=== PATIENT | female | born 1960 | race Caucasian/White ===

== ENCOUNTER 2021-12-06 21:29 | Emergency (ER) | payer MEDICARE, SELFPAY ==
[2021-12-06 21:30] VITALS: BP 139/97; PULSE 83; RESP 18; O2SAT 96; BMI 40.1
--- NOTE | 2021-12-06 21:37 | ED_ITS ---
HPI - Headache General: Chief Complaint: Headache Stated Complaint: SWELLING TO FOREHEAD/ HEADACHE Time Seen by Provider: 12/06/21 21:31 Source: patient Mode of arrival: EMS Limitations: no limitations History of Present Illness: HPI Narrative: Painful rash to upper forehead that started yesterday. The rash is gradually worsened and is very painful to touch. No injury. Pain is only to the skin and not deep in her head. Patient states she is a well-controlled type II diabetic MD elicited complaint: other (Forehead pain) Onset (ago): day(s) (2) Onset description: gradually Severity: moderate Quality & Timing: aching Exacerbating factors: other (Palpation) Relieving factors: nothing Associated symptoms: Reports rash; Deny chest pain, confusion, cough, diaphoresis, eye pain, eye redness, fever(s), lightheadedness, loss of vision, malaise, nausea, neck stiffness, numbness, paresthesias, photophobia, pre-syncope, short of breath, sound sensitivity, syncope, vomiting or weakness Review of Systems Const: Denies: fever(s), malaise or diaphoresis Eyes: Denies: change in vision ENMT: Denies: throat pain Card: Denies: chest pain, lightheadedness, syncope or pre-syncope Resp: Denies: dyspnea or wheezing GI: Denies: nausea or vomiting : Denies: flank pain Musc: Denies: neck pain or back pain Skin/Breast: Reports: rash Neuro: Denies: confusion Psych: Denies: anxiety Gianfranco/Lymph: Denies: enlarged lymph nodes Physical Exam Const: COMMON NORMALS: no acute distress, patient oriented x3, no limitations and well nourished EXAM LIMITATIONS: no altered mental status GENERAL APPEARANCE: cooperative HENMT: COMMON NORMALS: normocephalic and atraumatic HEAD & SCALP: normocephalic and atraumatic FACE & SINUS: other (Erythematous slightly raised rash to mid forehead consistent with zoster) THROAT: posterior oropharynx normal OTHER: Erythematous rash to mid forehead appears to be migrating down to the right orthodox. This is consistent with zoster. Rash is tender to touch. No abscess. No fluctuance. Eye: COMMON NORMALS: EOMs intact bilaterally and conjunctivae normal CONJUNCTIVA: Yes conjunctivae normal DIRECT OPHTHALMOSCOPY: No photophobia Neck/C-Spine: COMMON NORMALS: full ROM, no lymphadenopathy, supple and no m eningeal signs GENERAL: Yes normal visual inspection Lymph: LYMPHATIC: no lymphadenopathy noted Chest: COMMONS NORMALS: normal inspection of the chest and normal palpation of entire chest wall CHEST: No Ecchymosis present and No rash Resp: COMMON NORMALS: normal respiratory effort, No retractions and clear to a uscultation bilaterally EFFORT & INSPECTION: No respiratory distress AUSCULTATION: clear to auscultation bilaterally Cardio: COMMON NORMALS: regular rate, regular rhythm and Peripheral pulses 2+ throughout JUGULAR VENOUS DISTENTION: no JVD RATE: regular rate RHYTHM: regular rhythm PERIPHERAL PULSES: Peripheral pulses 2+ throughout GI: COMMON NORMALS: Normal to inspection, nondistended, normoactive bowel sounds present and non-tender : COMMON NORMALS: Yes no CVA tenderness BLADDER/KIDNEY EXAM: Yes no CVA tenderness Back/Pelvis: COMMON NORMALS: no CVA tenderness Extremity: COMMON NORMALS: normal to inspection, full ROM and capillary refill normal Neuro: COMMON NORMALS: patient oriented x3, CN's II-XII intact bilaterally, no focal motor deficits and no sensory deficits noted MENINGEAL SIGNS: Yes no meningeal signs Psych: COMMON NORMALS: mental status grossly normal and Normal thought process present THOUGHT PROCESS: Normal thought process present Skin: COMMON NORMALS: no wounds GENERAL SKIN EXAM: other (Early zoster to forehead.) Course Vital Signs: Vital signs: Vital Signs Pulse Rate 83 12/06/21 21:30 Respiratory Rate 18 12/06/21 21:30 Blood Pressure 139/97 12/06/21 21:30 Pulse Oximetry 96 12/06/21 21:30 MDM - Headache 2 MDM Narrative: Medical decision making narrative: I discussed with the patient that we will give low-dose steroid for a few days. Would give longer regimen, but patient is diabetic. Discharge Plan Discharge Patient Disposition: Home Clinical Impression: Herpes zoster Qualifiers: Herpes zoster complications: without complications Qualified Code(s): B02.9 - Zoster without complications Condition: Stable Prescriptions: New acyclovir 800 mg tablet 800 mg PO QID Qty: 28 RF: 0 prednisone 20 mg tablet 20 mg PO DAILY 5 Days RF: 1 hydrocodone-acetaminophen 5-325 mg tablet 1 tab PO Q6H PRN (Reason: pain) Qty: 12 RF: 0 Discharge Orders: Discharge ED (Routine); Ordered 12/06/21 Ordered By: Edwardo Pratt Discharge Diet: Usual diet Patient Instructions: Shingles (ED), Opioid Safety Activity Restrictions/Additional Instructions: Start acyclovir antiviral medication in the morning. Take prednisone with food each day for the next 5 days. Take hydrocodone only as directed. Coding Level of Care Code ED Timber Poisoner for Justino Fwd Exam Comprehensive
[2021-12-06] MEDS: acetaminophen 500 mg Tablet 1000 MG PO (22:16)
[2021-12-06] MEDS: predniSONE 20 mg Tablet 40 MG PO (22:16)
[2021-12-06] MEDS: acyclovir 800 mg Tablet PO (22:16)
== END 2021-12-06 22:17 | disposition home or self-care (01) ==
LOC: ER 22:01
PROVIDERS: Emergency Provider Family Medicine
DX: B02.9 Zoster without complications (principal)
CPT/HCPCS: 99283; J7512; J8499

== ENCOUNTER 2021-12-07 14:48 | Emergency (ER) | payer MEDICARE, SELFPAY ==
[2021-12-07 15:06] VITALS: BP 134/91; PULSE 90; RESP 20; TEMP 36.9; O2SAT 97; BMI 39.4
--- NOTE | 2021-12-07 15:19 | W.ED.GENADLT ---
Documented by User: Samnatha Ji PA-C 12/07/21 16:47 HPI - General Adult General: Chief complaint: General Medical Stated complaint: ANXIETY Time Seen by Provider: 12/07/21 15:14 Source: patient Mode of arrival: ambulatory Limitations: no limitations History of Present Illness: HPI narrative: 61-year-old female presents the ER today for anxiety and pain associated with shingles. Patient was seen here last night and diagnosed with shingles. Patient was given hydrocodone, acyclovir, and prednisone. Patient reports she had to then be outside for 3 hours because who she was staying with would not let her in. Patient was able to get in but then was kicked out this morning. Patient reports she has nowhere to go but needs to get back to [place]. Patient has not filled her medications she was given last night. Patient reports her anxiety is severe at this time. She has a history of anxiety but does not take anything for it. Patient denies any SI\HI. Patient reports chest pain in the left side. She reports she had a history of an AZ. She feels like this is probably anxiety however does radiate down the left arm. Patient denies any radiation into the jaw. Patient reports this has been constant since last night since her pain started getting worse. Patient denies dizziness, headache, fever, chills, shortness of breath, nausea, vomiting, diarrhea, constipation. Onset (ago): day(s) Location: head and chest Severity: severe Severity scale (1-10): 6 Associated symptoms: Reports chest pain and rash; Deny dyspnea Review of Systems General: Reports: 10 or more systems reviewed and unremarkable except in HPI and below Card: Reports: chest pain; Denies: edema Resp: Denies: dyspnea Skin/Breast: Reports: rash Psych: Reports: anxiety, depression and panic attacks; Denies: suicidal ideation or homicidal ideation Physical Exam Const: COMMON NORMALS: average body habitus and patient oriented x3 GENERAL APPEARANCE: cooperative and anxious HENMT: COMMON NORMALS: normocephalic, external ears normal and Normal external nose present HEAD & SCALP: normocephalic NOSE: Normal external nose present EXTERNAL EAR: Yes external ears normal OTHER: Erythema is noted to the forehead. There are no obvious shingles like lesions. Eye: COMMON NORMALS: conjunctivae normal CONJUNCTIVA: Yes conjunctivae normal Neck/C-Spine: COMMON NORMALS: no lymphadenopathy Resp: COMMON NORMALS: normal respiratory effort, No retractions and clear to auscultation bilaterally AUSCULTATION: clear to auscultation bilaterally, no rales, no rhonchi and no wheezes Cardio: COMMON NORMALS: regular rate, regular rhythm and No murmurs present (Cardio) RATE: regular rate RHYTHM: regular rhythm Extremity: COMMON NORMALS: normal to inspection and full ROM Neuro: COMMON NORMALS: patient oriented x3, moves all extremities, no sensory deficits noted and gait normal Psych: MOOD & AFFECT: Yes depressed mood, Yes anxious and Yes tearful Skin: NARRATIVE SKIN EXAM: Patient has erythema noted to the forehead but no obvious shingles lesions. Course ED course: Patient presents to the ER today for anxiety and pain associated with shingles. Patient was seen last night given appropriate medication for the shingles however she is homeless and went back to stay with someone. Patient reports she was kicked out this morning and has nowhere to go. Patient reports severe anxiety causing chest pain. Patient does have a history of an AZ however. On exam patient is noted to have erythema of the forehead. Patient has not filled her medications for the shingles. We will get an EKG given the chest pain however this is likely associated with anxiety as it started after all of the complications she has had in the last 2 days of finding somewhere to stay and being diagnosed with shingles. Reevaluation(s): Reevaluation #1: I went back into vertical flow to check another patient and noted this patient was sitting on the floor in front of the recliner. I asked her what had happened and she reports she tried to get up and became dizzy so slid down to the floor. Patient reports dizziness and feeling like her head will explode. Also continued chest pain. We are ordering a troponin and EKG at this time. Patient was helped back to the chair and denies any joint pain. Time: 15:44 Reevaluation #2: Q'ued for sign out to Antonio Myles at 1643. Waiting on troponin results. Time: 16:43 Vital Signs: Vital signs: Vital Signs Temperature 98.4 F 12/07/21 15:06 Pulse Rate 90 12/07/21 15:06 Respiratory Rate 20 H 01/16/22 15:06 Blood Pressure 134/91 01/16/22 15:06 Pulse Oximetry 97 12/07/21 15:06 MDM - General Adult Lab Data: Labs: Lab Results 12/07/21 16:53 Troponin T Gen 5 n g/L 13 ng/L H ng/L (0-10) EKG Data^: EKG 1: Computer generated interpretation: NSR with occasional PVC; rate 88, MA interval normal Critical Care Time Critical Care Time: Critical Care Time: No Discharge Plan Discharge Patient Disposition: Home Clinical Impression: Anxiety Shingles Qualifiers: Herpes zoster complications: without complications Qualified Code(s): B02.9 - Zoster without complications Condition: Stable Prescriptions: No Action acyclovir 800 mg tablet 800 mg PO QID Qty: 28 RF: 0 prednisone 20 mg tablet 20 mg PO DAILY 5 Days RF: 1 hydrocodone-acetaminophen 5-325 mg tablet 1 tab PO Q6H PRN (Reason: pain) Qty: 12 RF: 0 Discharge Orders: Discharge ED (Routine); Ordered 12/07/21 Ordered By: Antonio Myles Discharge Diet: Usual diet Discharge Activity: Increase activity as tolerated Patient Instructions: Shingles (ED), Opioid Safety Activity Restrictions/Additional Instructions: Continue with routine medications. Drink plenty of water with medicine. Follow-up with primary care. Return to the ER for new concerns. Sign Out Sign Out Data: Patient Sign Out occurred on 12/07/21 at 16:56. Patient's care was discussed, and care was transferred from to Antonio Myles. Post-Handoff Eval: Patient was alert and oriented. Patient complained of headache on my exam. Patient at this time does not have a place to stay. Patient reports that the place she was staying at would not take her back to her home in [place]. Patient appears well. Patient appears in mild pain due to shingles. Patient was dosed with 800 mg of acyclovir, one hydrocodone, and Vistaril for her anxiety. Troponin was 13 and unremarkable. EKG was sinus rhythm with occasional PVC. Recommended patient follow-up with primary care return to the ER for worsening symptoms or new concerns. Coding Level of Care Code ED Superintendent Schools for Chg Fwd Exam Comprehensive Documented by User: HERLINDA Sanderson 12/07/21 18:17 HPI - General Adult General: Chief complaint: General Medical Stated complaint: ANXIETY Time Seen by Provider: 12/07/21 15:14 Course Vital Signs: Vital signs: Vital Signs Temperature 98.4 F 12/07/21 15:06 Pulse Rate 90 12/07/21 15:06 Respiratory Rate 20 H 12/07/21 15:06 Blood Pressure 134/91 12/07/21 15:06 Pulse Oximetry 97 12/07/21 15:06 MDM - General Adult Lab Data: Labs: Lab Results 12/07/21 16:53 Troponin T Gen 5 n g/L 13 ng/L H ng/L (0-10) Discharge Plan Discharge Patient Disposition: Home Clinical Impression: Anxiety Shingles Qualifiers: Herpes zoster complications: without complications Qualified Code(s): B02.9 - Zoster without complications Condition: Stable Prescriptions: No Action acyclovir 800 mg tablet 800 mg PO QID Qty: 28 RF: 0 prednisone 20 mg tablet 20 mg PO DAILY 5 Days RF: 1 hydrocodone-acetaminophen 5-325 mg tablet 1 tab PO Q6H PRN (Reason: pain) Qty: 12 RF: 0 Discharge Orders: Discharge ED (Routine); Ordered 12/07/21 Ordered By: Antonio Myles Discharge Diet: Usual diet Discharge Activity: Increase activity as tolerated Patient Instructions: Shingles (ED), Opioid Safety Activity Restrictions/Additional Instructions: Continue with routine medications. Drink plenty of water with medicine. Follow-up with primary care. Return to the ER for new concerns. Sign Out Sign Out Data: Patient Sign Out occurred on 12/07/21 at 16:56. Patient's care was discussed, and care was transferred from to Antonio Myles. Post-Handoff Eval: Patient was alert and oriented. Patient complained of headache on my exam. Patient at this time does not have a place to stay. Patient reports that the place she was staying at would not take her back to her home in [place]. Patient appears well. Patient appears in mild pain due to shingles. Patient was dosed with 800 mg of acyclovir, one hydrocodone, and Vistaril for her anxiety. Troponin was 13 and unremarkable. EKG was sinus rhythm with occasional PVC. Recommended patient follow-up with primary care return to the ER for worsening symptoms or new concerns. Coding Level of Care Code ED Superintendent Schools for Chg Fwd Exam Comprehensive
--- NOTE | 2021-12-07 15:25 | ECG_ITS ---
[facility] [place] [facility] Test Date: 2021-12-07 Pat Name: Joseline George Department: Room: Gender: Female Chemical Tester: : 1960 Requested By: Samantha Ji Order Number: [id number] Katharine MD: RADHA POTTER Measurements Intervals [place] Rate: 88 P: 51 TX: 178 QRS: 23 QRSD: 110 T: 25 QT: 364 QTc: 441 Interpretive Statements SINUS RHYTHM WITH OCCASIONAL VENTRICULAR PREMATURE COMPLEXES NONSPECIFIC ST & T-WAVE ABNORMALITY No previous ECG available for comparison Electronically Signed On 12-07-2021 17:47:03 CONDEMNATION ENGINEER by RADHA POTTER [id number]
[2021-12-07 17:34] LABS: Troponin T (5th) Once 13 ng/L (0-10)
--- NOTE | 2021-12-07 17:37 | PC.NURSE ---
upon entry to room neal found to be in the floor. when asked patient states i tried to get up and got dizzy and sat in the floor and my chest is hurting and sob. EKG done per accessibility lift technician and provider notified. patient helped back into chair with no issues. patient AOx4 upon assessment.
--- NOTE | 2021-12-07 17:38 | PC.NURSE ---
1650- patinet asleep upon entry to room. patient easily aroused via verbal stimuli. patients blood drawn and sent to lab. patient denies comment/concerns at this time. call light withinr eac.
[2021-12-07] MEDS: acyclovir 400 mg Tablet 800 MG PO (18:45)
[2021-12-07] MEDS: hyDROXYzine 25 mg Capsule PO (18:45)
[2021-12-07] MEDS: HYDROcodone-acetaminophen 5-325 mg Tablet 1 TAB PO (18:45)
[2021-12-07] MEDS: predniSONE 20 mg Tablet PO (19:28)
[2021-12-07 20:16] VITALS: BP 138/94; PULSE 97; RESP 20; TEMP 36.8; O2SAT 98
== END 2021-12-07 20:18 | disposition home or self-care (01) ==
PROVIDERS: Physician Assistant; Emergency Provider Nurse Practitioner Family
DX: F41.9 Anxiety disorder, unspecified (principal); B02.9 Zoster without complications
CPT/HCPCS: 84484; 93005; 99283; J7512; J8499

== ENCOUNTER 2021-12-07 21:31 | Inpatient (IN) | payer MEDICARE, SELFPAY ==
--- NOTE | 2021-12-07 21:39 | ECG_ITS ---
[facility] Test Date: 2021-12-07 Pat Name: Joseline George Department: Room: Gender: Female Material Controller: : 1960 Requested By: Antonio Bains Order Number: [id number] Reading MD: RADHA POTTER Measurements Intervals [place] Rate: 81 P: 79 AK: 182 QRS: 76 QRSD: 102 T: 82 QT: 375 QTc: 438 Interpretive Statements SINUS RHYTHM Compared to ECG 12/07/2021 22:04:22 No significant changes Electronically Signed On 12-08-2021 20:54:12 ATOMIC FUEL ASSEMBLER by RADHA POTTER [id number]
[2021-12-07 21:55] VITALS: BP 146/104; PULSE 89; RESP 26; TEMP 36.7; O2SAT 96; BMI 37.2
--- NOTE | 2021-12-07 22:10 | ED_ITS ---
HPI - Chest Pain General: Chief Complaint: Chest Pain Stated Complaint: SOB, Chest Pain Time Seen by Provider: 12/07/21 22:03 Source: patient Mode of arrival: ambulatory Limitations: no limitations History of Present Illness: HPI narrative: 61-year-old female who has been seen here 3 times in the last 2 days. She states that she is not able to get a ride back home when she started having extreme anxiety stretch 7 chest pain shortness of breath believes that she is just having a panic attack though she states that she feels like that her life is out of control and she is having suicidal thoughts. She has no specific suicidal plan denies any worsening improving factors. Associated symptoms: Deny abdominal pain, dyspnea, fever(s), nausea or vomiting Review of Systems Const: Denies: fever(s), chills, body aches or change in appetite Eyes: Denies: blurry vision or eye discomfort ENMT: Denies: throat pain or dental pain Card: Reports: chest pain Resp: Denies: dyspnea GI: Denies: abdominal pain, nausea, vomiting or diarrhea : Denies: dysuria Musc: Denies: neck pain or back pain Skin/Breast: Denies: rash Neuro: Denies: headache(s) Psych: Reports: anxiety Gianfranco/Lymph: Denies: easy bruising All/Imm: Denies: urticaria PFSH ED PFSH: Family History (Updated 12/07/21 @ 22:11 by Shelley Goins MD) Denies family history of CAD (coronary artery disease) Social History (Updated 12/07/21 @ 22:10 by Shelley Goins MD) Smoking and tobacco status: current every day smoker Physical Exam Const: COMMON NORMALS: patient oriented x3 and healthy appearing GENERAL APPEARANCE: anxious HENMT: COMMON NORMALS: normocephalic and atraumatic HEAD & SCALP: normocephalic and atraumatic Eye: COMMON NORMALS: Equal, round and reactive pupils present and EOMs intact bilaterally PUPIL: Yes Equal, round and reactive pupils present Neck/C-Spine: COMMON NORMALS: full ROM and supple Chest: COMMONS NORMALS: normal inspection of the chest and normal palpation of entire chest wall Resp: COMMON NORMALS: normal respiratory effort, No retractions, No use of accessory muscles and clear to auscultation bilaterally AUSCULTATION: clear to auscultation bilaterally Cardio: COMMON NORMALS: regular rate, regular rhythm and No murmurs present (Cardio) RATE: regular rate RHYTHM: regular rhythm GI: COMMON NORMALS: Normal to inspection, nondistended, normoactive bowel sounds present, Soft to palpation, non-tender and no masses PALPATION: Yes Soft to palpation Extremity: COMMON NORMALS: normal to inspection and full ROM Neuro: COMMON NORMALS: patient oriented x3, moves all extremities and no focal motor deficits Psych: COMMON NORMALS: mental status grossly normal, Normal thought process present and cooperative THOUGHT PROCESS: Normal thought process present Skin: COMMON NORMALS: no rashes or lesions noted and no wounds GENERAL SKIN EXAM: no rashes or lesions noted Course Vital Signs: Vital signs: Vital Signs Temperature 98.1 F 12/07/21 21:55 Pulse Rate 89 12/07/21 21:55 Respiratory Rate 26 H 12/07/21 21:55 Blood Pressure 146/104 12/07/21 21:55 Pulse Oximetry 96 12/07/21 21:55 MDM - Chest Pain MDM Narrative: Medical decision making narrative: Patient presents here with anxiety along with depression and suicidal ideation with no specific plan having chest pain likely from her anxiety her troponin here is negative she had an earlier troponin drawn as well that was negative as well EKG is normal I spoke to psychiatrist and will admit patient is voluntary. Lab Data: Labs: Lab Results 12/07/21 12/07/21 12/07/21 22:50 22:50 22:50 WBC 10.7 10^3/uL H 10 ^3/uL (4.0-10.0) RBC 4.28 10^6/uL 10^6 /uL (4.1-5.3) Hgb 13.2 g/dL g/dL (11.5-15.3) Hct 39.6 % % (37.0-47.0) MCV 92.5 fl fl (81-99) MCH 30.8 pg pg (28.0-34.0) MCHC 33.3 g/dL g/dL (30.0-36.0) RDW 12.8 % % (12.1-15.1) Plt Count 226 10^3/cmm 10^3 /cmm (130-400) MPV 9.4 fL fL (7.4-10.4) Neut % (Auto) 86.1 % % Lymph % (Auto) 8.2 % % [place] % (Auto) 5.1 % % Eos % (Auto) 0.0 % % Baso % (Auto) 0.1 % % Neut # (Auto) 9.21 10^3/uL H 10 ^3/uL (1.8-7.7) Lymph # (Auto) 0.9 10^3/uL 10^3/ uL (0.8-4.8) Morehouse # (Auto) 0.6 10^3/uL 10^3/ uL (0.2-0.9) Eos # (Auto) 0.0 10^3/uL 10^3/ uL (0.0-0.8) Baso # (Auto) 0.0 10^3/uL 10^3/ uL (0.0-0.1) Nucleated RBC % (a uto) 0 % % Nucleated RBCs # 0.0 /100WBC /100W BC Sodium 135 mmol/L L mmol /L (136-145) Potassium 4.1 mmol/L mmol/L (3.5-5.1) Chloride 99 mmol/L mmol/L (98-107) Carbon Dioxide 22 mmol/L mmol/L (22-29) Anion Gap 18.1 (5-19) BUN 8 mg/dL mg/dL (6-20) Creatinine 0.5 mg/dL mg/dL (0.5-0.9) GFR Calculation 126.3 mL/min mL/m in (90-130) Glucose 117 mg/dL H mg/dL (65-115) Calculated Osmolal ity 279 mOsm/kg L mOs m/kg (285-295) Calcium 8.5 mg/dL mg/dL (8.5-10.5) Total Bilirubin 0.4 mg/dL mg/dL (0.15-1.2) AST 23 U/L U/L (0-32) ALT 18 U/L U/L (0-33) Alkaline Phosphata se 87 IU/L IU/L (35-105) Troponin T Baselin e 11 ng/L H ng/L (0-10) Total Protein 6.1 g/dL L g/dL (6.6-8.7) Albumin 3.9 g/dL g/dL (3.5-5.2) Globulin 2.2 g/dL g/dL (1.3-4.6) Salicylates < 0.3 mg/dL L mg/ dL (3-10) Urine Opiates Scre en Acetaminophen < 5.0 ug/mL L ug/ mL (10-30) Ur Barbiturates Sc reen Ur Phencyclidine S crn Ur Amphetamines Sc reen U Benzodiazepines Scrn Urine Cocaine Scre en U Marijuana (THC) Screen Ethyl Alcohol < 10 mg/dL mg/dL (0-10) 12/07/21 23:24 WBC RBC Hgb Hct MCV MCH MCHC RDW Plt Count MPV Neut % (Auto) Lymph % (Auto) [place] % (Auto) Eos % (Auto) Baso % (Auto) Neut # (Auto) Lymph # (Auto) [place] # (Auto) Eos # (Auto) Baso # (Auto) Nucleated RBC % (a uto) Nucleated RBCs # Sodium Potassium Chloride Carbon Dioxide Anion Gap BUN Creatinine GFR Calculation Glucose Calculated Osmolal ity Calcium Total Bilirubin AST ALT Alkaline Phosphata se Troponin T Baselin e Total Protein Albumin Globulin Salicylates Urine Opiates Scre en Positive ng/mL H ng/mL (Negative) Acetaminophen Ur Barbiturates Sc reen Negative ng/mL ng /mL (Negative) Ur Phencyclidine S crn Negative ng/mL ng /mL (Negative) Ur Amphetamines Sc reen Positive ng/mL H ng/mL (Negative) U Benzodiazepines Scrn Positive ng/mL H ng/mL (Negative) Urine Cocaine Scre en Negative ng/mL ng /mL (Negative) U Marijuana (THC) Screen Positive ng/mL H ng/mL (Negative) Ethyl Alcohol Imaging Data^: CXR: Attestation: I personally reviewed and interpreted this imaging study as follows: My impression: no acute abnormality EKG Data^: EKG 1: Attestation: I personally reviewed and interpreted this EKG as follows: EKG interpretation date: 12/07/21 EKG interpretation time: 22:04 Interpretation: nsr hr [address] or t wave abnormalities qrs 110 qtc 424 EKG 2: Attestation: I personally reviewed and interpreted this EKG as follows: EKG interpretation date: 12/07/21 EKG interpretation time: 23:23 Interpretation: nsr hr [address] or t wave abnormalities qrs 102 qtc 413 Discharge Plan Discharge Patient Disposition: Admitted As Inpatient Admit Provider: Ryan Norris Clinical Impression: Suicidal ideation, Anxiety, Atypical chest pain Condition: Stable Coding Level of Care Code ED Emissions Testing Technician for Chg Fwd Exam Comprehensive
--- NOTE | 2021-12-07 22:30 | XRR_ITS ---
PROCEDURE INFORMATION: Exam: XR Chest Exam date and time: 12/07/2021 10:30 PM Age: 61 years old Clinical indication: Dyspnea; Additional info: SOB TECHNIQUE: Imaging protocol: XR of the chest. Views: 1 view. COMPARISON: No relevant prior studies available. FINDINGS: Lungs: Unremarkable. No consolidation. Pleural spaces: Unremarkable. No pleural effusion. No pneumothorax. Heart/Mediastinum: Unremarkable. No cardiomegaly. Bones/joints: Unremarkable. Soft tissues: Examination limited by body habitus. XR/XR chest 1V portable [id number] IMPRESSION: 1. Examination limited by body habitus. 2. No acute disease.
[2021-12-07] MEDS: LORazepam 2 mg/mL INJ 1 mL 1 MG IVP (23:00)
[2021-12-07 23:03] LABS: Basophils % 0.1 %; Hematocrit 39.6 % (37.0-47.0); Hemoglobin 13.2 g/dL (11.5-15.3); Lymphocytes # 0.9 10^3/uL (0.8-4.8); Lymphocytes % 8.2 %; Mean Corpuscular HGB Conc 33.3 g/dL (30.0-36.0); Mean Corpuscular Hemoglobin 30.8 pg (28.0-34.0); Mean Corpuscular Volume 92.5 fl (81-99); Mean Platelet Volume 9.4 fL (7.4-10.4); Monocytes # 0.6 10^3/uL (0.2-0.9); Monocytes % 5.1 %; Neutrophils # 9.21 10^3/uL (1.8-7.7); Neutrophils % 86.1 %; Nucleated Red Blood Cells % 0 %; Platelet Count 226 10^3/cmm (130-400); Red Blood Count 4.28 10^6/uL (4.1-5.3); Red Cell Distribution Width 12.8 % (12.1-15.1); White Blood Count 10.7 10^3/uL (4.0-10.0)
[2021-12-07 23:33] LABS: Troponin(5th) Baseline 11 ng/L (0-10)
[2021-12-07 23:35] LABS: Alanine Aminotransferase 18 U/L (0-33); Albumin Level 3.9 g/dL (3.5-5.2); Alkaline Phosphatase 87 IU/L (35-105); Aspartate Amino Transferase 23 U/L (0-32); Blood Urea Nitrogen 8 mg/dL (6-20); Calcium 8.5 mg/dL (8.5-10.5); Carbon Dioxide 22 mmol/L (22-29); Chloride 99 mmol/L (98-107); Globulin 2.2 g/dL (1.3-4.6); Glomerular Filtration Rate 126.3 mL/min (90-130); Glucose 117 mg/dL (65-115); Osmolality Calculated 279 mOsm/kg (285-295); Sodium 135 mmol/L (136-145); Total Bilirubin 0.4 mg/dL (0.15-1.2); Total Protein 6.1 g/dL (6.6-8.7)
[2021-12-07 23:39] LABS: Amphetamines Screen Urine Positive (Negative); Barbiturates Screen Urine Negative (Negative); Benzodiazepines Screen Urine Positive (Negative); Cocaine Screen Urine Negative (Negative); Opiate Screen Urine Positive (Negative); PCP Screen Urine Negative (Negative); THC Screen Urine Positive (Negative)
--- NOTE | 2021-12-07 23:39 | ECG_ITS ---
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
[2021-12-07 23:40] LABS: Acetaminophen < 5.0 ug/mL (10-30); Alcohol Level < 10 mg/dL (0-10); Anion Gap 18.1 (5-19); Potassium 4.1 mmol/L (3.5-5.1); Salicylate < 0.3 mg/dL (3-10)
[2021-12-08] MEDS: LORazepam 2 mg/mL INJ 1 mL 1 MG IVP (00:35)
[2021-12-08 01:09] VITALS: BP 115/87
[2021-12-08 01:19] LABS: Troponin 5 2HR 8.84 ng/L (0-10)
[2021-12-08 01:21] LABS: Troponin 5 2HR Delta -2.16 ABS# (0-10)
--- NOTE | 2021-12-08 05:48 | PC.NURSE ---
Patient with noted rash to forehead, bilateral ears, anterior and posterior neck. Right eye with noted swelling without exudates. Sclera is white. Patient states that rash does itch.
[2021-12-08 06:00] VITALS: BP 120/72; PULSE 92; RESP 18; O2SAT 94
[2021-12-08 06:25] LABS: Troponin 5 6HR 8.09 ng/L (0-10)
[2021-12-08 06:27] LABS: Troponin 5 6HR Delta -2.91 ng/L (0-12)
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
[2021-12-08] MEDS: acyclovir 800 mg Tablet PO (09:20)
[2021-12-08] MEDS: predniSONE 20 mg Tablet PO ×2 (09:21→11:11)
[2021-12-08] MEDS: acetaminophen 325 mg Tablet 650 MG PO (09:21)
[2021-12-08] MEDS: venlafaxine ER (24HR) 150 mg Capsule 300 MG PO (09:21)
--- NOTE | 2021-12-08 09:55 | PC.OT ---
OT EVALUATION ORDERS RECEIVED. PER NURSING, PATIENT IS BEING TESTED FOR SHINGLES. WILL AWAIT RESULTS.
--- NOTE | 2021-12-08 10:09 | PC.NURSE ---
END ISOLATION Hospilist consulted. does not feel this is shingles. Relayed plan to increase Prednisone, DC Acyclovir, and give Benadryl. Isolation precaustions discontinued, moved to room 131-1. Flu vaccine held d/t this current reaction that is of unknown source.
--- NOTE | 2021-12-08 10:10 | PM.CONSULT ---
Providers/Reason For Consult Consulting Physician/Specialty*: Andrew Bose hospitalist Reason for Consult*: Rash Attending Physician: Ryan Norris MD History of Present Illness History of Present Illness Joseline George is a 61 year old female who presents with history of forehead swelling since December 06. She reports it itches quite a bit, and is swollen on both sides. It hurts some to touch. She thought it was going into her cheeks on both sides but may be receding from that. She has not had any fever. She has not had any lesions. On December 06 there was concern for shingles and she was placed on prednisone and acyclovir and given hydrocodone for pain. She denies any history of stings or bites to the area. She denies any trauma to the area. Review of Systems General: Reports: 10 or more systems reviewed and unremarkable except in HPI and below Const: Denies: fever(s) Eyes: Denies: change in vision ENMT: Denies: throat pain Card: Denies: chest pain Resp: Denies: dyspnea GI: Denies: abdominal pain : Denies: flank pain Musc: Denies: neck pain Skin/Breast: Reports: rash, pruritus and erythema Neuro: Denies: headache(s) Psych: Denies: anxiety Endo: Denies: polyuria Gianfranco/Lymph: Denies: easy bruising All/Imm: Denies: urticaria Medications/Allergies Home Medications Medication Instructions Recorded Confirmed Last Taken Type acyclovir 800 mg PO QID #28 tab 12/06/21 12/08/21 Unknown Rx hydrocodone-acetaminophen 1 tab PO Q6H PRN #12 tab 12/06/21 12/08/21 Unknown Rx prednisone 20 mg PO DAILY 5 Days tab 12/06/21 12/08/21 Unknown Rx albuterol See Rx Instructions .ROUTE 12/08/21 12/08/21 Unknown History .COMPLEX PRN budesonide-formoterol [Symbicort] 2 puff INHALATION DAILY 12/08/21 12/08/21 Unknown History venlafaxine 300 mg PO DAILY 12/08/21 12/08/21 Unknown History Allergies Allergy/AdvReac Type Severity Reaction Status Date / Time Iodinated Contrast Media Allergy ALGY-Anaphy Verified 12/06/21 21:39 laxis Sulfa (Sulfonamide Allergy ALGY-Hives Verified 12/06/21 21:39 Antibiotics) Current Medications Generic Name Dose Route Start Last Admin Trade Name Caleb PRN Reason Stop Dose Admin Acetaminophen 650 mg 12/08/21 03:53 12/08/21 09:21 Acetaminophen 325 Mg Tablet PO 650 mg Q4H PRN Administration MILD PAIN Venlafaxine HCl 300 mg 12/08/21 09:00 12/08/21 09:21 Venlafaxine Er (24hr) 150 Mg Capsule PO 300 mg DAILY GORDY Administration PFSH Acute PFSH: Medical History Depression Family History Denies family history of CAD (coronary artery disease) Social History Smoking and tobacco status: current every day smoker Other PFSH information: Family history noncontributory in regards to her rash. No significant surgical history pertaining to this as well. Vitals/I&O/Wt Last Vital Signs Temp 98.1 F 12/07/21 21:55 Pulse 92 12/08/21 06:00 Resp 18 12/08/21 06:00 BP 120/72 12/08/21 06:00 Pulse Ox 94 12/08/21 06:00 Weight last 48 hrs Weight 117.662 kg Physical Exam Narrative: EXAM NARRATIVE: General exam is a female, reporting her forehead itches. HEENT: Atraumatic normocephalic. There is some mild erythema centrally in the forehead, flattening of wrinkles consistent with a little bit of edema. I do not see any lesions at all. The area with swelling is not unilateral, more central. No other rashes noted on the body. Main complaint during my exam with significant itching. Oropharynx clear. Neck is supple, no thyromegaly or lymphadenopathy Cardiovascular regular rate and rhythm, no murmur Lungs clear no wheezing or crackles Abdomen is soft, obese. Nontender. No obvious organomegaly exam was deferred Extremities no cyanosis clubbing or edema, cap refill brisk Skin no rash Neuro no obvious focal deficits. Data Other Data: Other data: Laboratory on admission was reviewed. White blood cell count 10.7. LFTs within normal limits. Urine drug screen positive for amphetamines benzodiazepines and THC Chest x-ray negative A&P Assessment and plan (1) Edema: Ms. George has some forehead edema, associated with itching. It does not really look cellulitic. There are no lesions to suggest zoster. This may be an allergy of some kind, although she denies any new hair products, or skin creams. At this point I would give Benadryl as needed for itching, and she is already on prednisone which I will increase to 40 mg a day for 3 days. If skin becomes significantly dry could consider hydrocortisone or triamcinolone cream. I will follow-up with her tomorrow No isolation is needed. There is no evidence of herpes zoster at this time. Status: Acute Consult Attestations Medical Necessity Statement: As per primary Coding Level of Care Code Acute Employee Relations Specialist for [employer]ino Mult[employer] Diagnoses Edema R60.9
[2021-12-08] MEDS: diphenhydrAMINE 25 mg Capsule PO ×3 (11:12→23:17)
--- NOTE | 2021-12-08 11:16 | PC.NURSE ---
PRN MED PT GIVEN 25MG BENADRYL FOR INCHING, WILL CONTINUE TO MONITOR.
[2021-12-08 14:00] VITALS: BP 120/72; PULSE 92; RESP 18; TEMP 36.7; O2SAT 94
[2021-12-08 15:18] VITALS: BP 135/94; PULSE 89; RESP 18; TEMP 36.5; O2SAT 96
[2021-12-08] MEDS: HYDROcodone-acetaminophen 5-325 mg Tablet 1 TAB PO (16:24)
[2021-12-08] MEDS: ziprasidone hcl 40 mg Capsule PO (17:27)
[2021-12-08] MEDS: nicotine 2 mg Gum BUCCAL (17:37)
[2021-12-08 19:23] VITALS: PULSE 81; RESP 17; O2SAT 90
[2021-12-08 19:39] VITALS: BP 126/85; PULSE 78; RESP 16; TEMP 36.4; O2SAT 98
[2021-12-09] MEDS: acetaminophen 325 mg Tablet 650 MG PO ×2 (01:47→21:10)
[2021-12-09] MEDS: hyDROXYzine 25 mg Capsule 50 MG PO ×2 (01:48→21:11)
[2021-12-09] MEDS: HYDROcodone-acetaminophen 5-325 mg Tablet 1 TAB PO ×2 (04:15→11:30)
--- NOTE | 2021-12-09 05:31 | PC.NURSE ---
Patient received Benadryl 25 mg po for itching and Tylenol 650mg po prn for a headache. The Benadryl was effective. The Tylenol was not effective. Hydrocodone was given for her headache rated at an 8. This was effective.
[2021-12-09] MEDS: topiramate 100 mg Tablet PO (05:36)
[2021-12-09] MEDS: diphenhydrAMINE 25 mg Capsule PO ×4 (05:37→21:12)
[2021-12-09 05:38] VITALS: BP 138/103; PULSE 80; RESP 17; TEMP 36.7; O2SAT 96
--- NOTE | 2021-12-09 08:39 | P.PN_ITS ---
Subjective Subjective: Interval history: Patient reports the forehead is itching. Nursing reports this is a little bit better than yesterday. She also had some rash on her arms which is now gone. Medications: Reviewed: Yes Vitals/I&O/Wt Last Vital Signs Temp 98.1 F 12/09/21 05:38 Pulse 80 12/09/21 05:38 Resp 17 12/09/21 05:38 BP 138/103 12/09/21 05:38 Pulse Ox 96 12/09/21 05:38 Weight last 48 hrs Weight 117.662 kg Physical Exam Narrative: EXAM NARRATIVE: Forehead edema, erythema slightly worse from my exam yesterday. Reviewed history again with the patient and no new medications, hair products, etc. She does state this started with a white spot in the middle of the forehead. This could have been envenomation. Data : 12/07/21 22:50 12/07/21 22:50 A&P Assessment and plan (1) Edema: No evidence of shingles. Most likely envenomation, allergy Continue Benadryl, prednisone We will add some triamcinolone cream topical for itching No need for any isolation. Avoid scratching which will make allergic response worse. Status: Acute Attestations Medical Necessity Statement*: As per primary Coding Level of Care Code Acute Accounting Software Specialist for Justino Multani Diagnoses Edema R60.9
[2021-12-09] MEDS: venlafaxine ER (24HR) 150 mg Capsule 300 MG PO (09:02)
[2021-12-09] MEDS: predniSONE 20 mg Tablet 40 MG PO (09:02)
[2021-12-09] MEDS: nicotine 2 mg Gum BUCCAL (09:02)
[2021-12-09] MEDS: triamcinolone 0.1% cream 15 gm 1 APPLIC TOPICAL ×2 (09:32→17:06)
--- NOTE | 2021-12-09 11:17 | W.PM.NPUPNS ---
Subjective NPU Subjective: Interval history: She continues to be anxious and tearful. She says that she wants to go home. She says that she has been crying all morning. Her back is hurting from laying in bed. She was encouraged to be up and around more often. She slept very well and did not have any side effects from the Geodon 40 mg. She says that it does not seem to be doing anything for her anxiety during the day and agreed to try and take some during the day as well. Mental Status Exam MSE Comments: This is a 61-year-old obese who appears approximately his stated age and is in no acute distress. She is dressed in hospital scrubs and was found asleep in bed at 8 AM. She is in isolation because of the diagnosis of shingles. She is pleasant and cooperative with the evaluation. psychomotor activity is normal. Speech is at a regular rate and rhythm, normal volume, good articulation, not pressured. Alert, oriented X3 Attention and concentration appear to be good. Memory is intact Mood is depressed and anxious. Affect is moderately dysphoric. Thought process is logical and goal-directed. Thought content: Denies auditory and visual hallucinations. No delusions or paranoia are noted. She continues to have some mild suicidal ideation. She has had no plan. She denies homicidal ideation. Fund of knowledge is average. Insight and judgment appear to be fairly good. Impulse control is fairly good. Cognition: Patient Appearance: Appropriate Level of Consciousness: Awake, Alert, Appropriate and Follows Commands Patient Cognition Impaired: No Ability to Follow Directions: Good Patient Orientation (long list): Person, Place, Time, Name, Age, Birthday, Day of Month, Day of Week, Month, Time of Day and Year Comprehension Ability: No Impairment Hallucination Type: None Thought Process: Appropriate Affect: Affect Description: Appropriate, Schleicher and Calm Behavior: Patient Behavior: Appropriate and Cooperative Speech Pattern: Appropriate and Clear Vitals/I&O/Wt Last Vital Signs Temp 98.1 F 12/09/21 05:38 Pulse 80 12/09/21 05:38 Resp 17 12/09/21 05:38 BP 138/103 12/09/21 05:38 Pulse Ox 96 12/09/21 05:38 Weight last 48 hrs Weight 117.662 kg Data NPU : 12/07/21 22:50 12/07/21 22:50 A&P Assessment and plan (1) Shingles: Status: Acute Qualifiers: Herpes zoster complications: without complications Qualified Code(s): B02.9 - Zoster without complications (2) Anxiety: Status: Acute (3) Suicidal ideation: Status: Acute (4) Atypical chest pain: Status: Acute (5) PTSD (post-traumatic stress disorder): Status: Acute Additional A&P Information This is a 61-year-old female who was admitted to the emergency department with severe anxiety and some suicidal ideations Plan: 1. Continue current medication for her shingles. Continue Effexor 300 mg and Topamax 100 mg in the morning and trazodone 100 mg at bedtime. Increase the Geodon to 20 mg in the morning and 60 mg in the evening. 2. Continue every 15 minute checks for safety. 3. Encourage individual, group and milieu therapies. 4. Encourage sober living treatment after discharge at the highest level of care to which she is willing to commit. 5. We will monitor for safety for herself in the community prior to discharge. Involuntary Hold Information 96 Hour Hold: 96 Hour Involuntary Admission: No Attestations NPU Medical Necessity Statement*: Inpatient hospitalization is medically necessary and the clinically appropriate intervention at this time. We will initiate medications and make changes as indicated. Coding Level of Care Code Acute Nuclear Weapons Custodian for Justino Multani Diagnoses Shingles B02.9 Herpes zoster complications: without complications Anxiety F41.9 Suicidal ideation R45.851 Atypical chest pain R07.89 PTSD (post-traumatic stress disorder) F43.10
[2021-12-09] MEDS: ziprasidone hcl 20 mg Capsule PO (12:40)
[2021-12-09 13:41] VITALS: BP 138/103; PULSE 80; RESP 17; TEMP 36.7; O2SAT 96
[2021-12-09] MEDS: lisinopril 20 mg Tablet PO (14:52)
[2021-12-09] MEDS: ziprasidone hcl 60 mg Capsule PO (17:03)
[2021-12-09 21:06] VITALS: BP 124/90; PULSE 81; RESP 14; TEMP 36.9; O2SAT 97
[2021-12-09] MEDS: trazodone 50 mg Tablet 100 MG PO (21:14)
[2021-12-09 22:20] VITALS: PULSE 78; RESP 16; O2SAT 94
--- NOTE | 2021-12-10 00:51 | PC.NURSE ---
PRN Administration Patient c/o itching/rash, headache 8/10, and trouble falling asleep. Patient given tylenol, Trazodone, and hydroxyzine PO as ordered with noted effectiveness.
[2021-12-10] MEDS: diphenhydrAMINE 25 mg Capsule PO ×4 (02:40→21:22)
[2021-12-10] MEDS: HYDROcodone-acetaminophen 5-325 mg Tablet 1 TAB PO ×3 (04:34→21:21)
--- NOTE | 2021-12-10 04:42 | PC.NURSE ---
PRN Administration Patient c/o pain 8/10 in left neck and shoulder area. PRN hydrocodone PO given as ordered.
[2021-12-10 06:00] VITALS: BP 141/92; PULSE 74; RESP 18; TEMP 36.6; O2SAT 96
[2021-12-10] MEDS: ziprasidone hcl 20 mg Capsule PO (06:53)
--- NOTE | 2021-12-10 09:00 | P.PN_ITS ---
Subjective Subjective: Interval history: Joseline feels a little bit better today. Less swelling. It still itches, but perhaps less. She has a little bit of tenderness to the back of her scalp, on the left side. Medications: Reviewed: Yes Vitals/I&O/Wt Last Vital Signs Temp 98 F 12/10/21 06:00 Pulse 74 12/10/21 06:00 Resp 18 12/10/21 06:00 BP 141/92 12/10/21 06:00 Pulse Ox 96 12/10/21 06:00 Physical Exam Narrative: EXAM NARRATIVE: Erythema of the forehead is improved. Slight peeling is occurring. Some erythema in the scalp was noted. Overall I believe she has somewhat improved in regards to her edema and erythema. Data : 12/07/21 22:50 12/07/21 22:50 A&P Assessment and plan (1) Edema: No evidence of shingles. Most likely envenomation, allergy Continue Benadryl, prednisone Continue triamcinolone cream No need for any isolation. Avoid scratching which will make allergic response worse. Overall she appears to be improving. I will reevaluate tomorrow and if continues to improve we will sign off. Status: Acute Attestations Medical Necessity Statement*: As per primary Coding Level of Care Code Acute Graphic Art Designer for Justino Multani Diagnoses Edema R60.9
[2021-12-10] MEDS: predniSONE 20 mg Tablet 40 MG PO (09:34)
[2021-12-10] MEDS: venlafaxine ER (24HR) 150 mg Capsule 300 MG PO (09:35)
[2021-12-10] MEDS: OLANZapine 5 mg ODT PO (09:35)
[2021-12-10] MEDS: topiramate 100 mg Tablet PO (09:35)
[2021-12-10] MEDS: lisinopril 20 mg Tablet PO (09:35)
[2021-12-10 09:40] VITALS: PULSE 89; RESP 16; O2SAT 98
--- NOTE | 2021-12-10 10:22 | P.NPUPN_ITS ---
Subjective NPU Subjective: Interval history: He says that her depression and anxiety are somewhat improved. She does not like being here in [place] because it is close to the [place] woman to brought her up here. She last had intended her to stay here because she changed insurance to pay [place] insurance. She says that she has a Medicare advantage plan that will pay for her a ride back home. She thinks that her anxiety will be improved when she is home. She slept well last night. She thinks the Geodon at bedtime is helping. We 20 mg today seems to be making her a little sleepy but she thinks that if she had something to do she would not be sleepy. It does seem to help her anxiety somewhat. She does not have other side effects. Mental Status Exam MSE Comments: This is a 61-year-old obese who appears approximately his stated age and is in no acute distress. She is dressed in hospital scrubs and was found asleep in bed at 10 AM. She is pleasant and cooperative with the evaluation. psychomotor activity is normal. Speech is at a regular rate and rhythm, normal volume, good articulation, not pressured. Alert, oriented X3 Attention and concentration appear to be good. Memory is intact Mood is mildly depressed and anxious significantly improved. Affect is moderately dysphoric. Thought process is logical and goal-directed. Thought content: Denies auditory and visual hallucinations. No delusions or paranoia are noted. She denies any suicidal ideation. She denies homicidal ideation. Fund of knowledge is average. Insight and judgment appear to be fairly good. Impulse control is fairly good. Cognition: Patient Appearance: Appropriate Level of Consciousness: Awake, Alert, Appropriate and Follows Commands Patient Cognition Impaired: No Ability to Follow Directions: Good Patient Orientation (long list): Person, Place, Time, Name, Age, Birthday, Day of Month, Day of Week, Month, Time of Day and Year Comprehension Ability: No Impairment Hallucination Type: None Thought Process: Appropriate Affect: Affect Description: Appropriate Behavior: Patient Behavior: Appropriate Speech Pattern: Appropriate Vitals/I&O/Wt Last Vital Signs Temp 98 F 12/10/21 06:00 Pulse 89 12/10/21 09:40 Resp 16 12/10/21 09:40 BP 141/92 12/10/21 06:00 Pulse Ox 98 01/19/22 09:40 Data NPU : 12/07/21 22:50 12/07/21 22:50 A&P Assessment and plan (1) Shingles: Status: Acute Qualifiers: Herpes zoster complications: without complications Qualified Code(s): B02.9 - Zoster without complications (2) Anxiety: Status: Acute (3) Suicidal ideation: Status: Acute (4) Atypical chest pain: Status: Acute (5) PTSD (post-traumatic stress disorder): Status: Acute Additional A&P Information This is a 61-year-old female who was admitted to the emergency department with severe anxiety and some suicidal ideations Plan: 1. Continue current medication for her shingles. Continue Effexor 300 mg and Topamax 100 mg in the morning and trazodone 100 mg at bedtime. Continue Geodon to 20 mg in the morning and 60 mg in the evening. 2. Continue every 15 minute checks for safety. 3. Encourage individual, group and milieu therapies. 4. Encourage sober living treatment after discharge at the highest level of care to which she is willing to commit. 5. We will monitor for safety for herself in the community prior to discharge. Involuntary Hold Information 96 Hour Hold: 96 Hour Involuntary Admission: No Attestations NPU Medical Necessity Statement*: Inpatient hospitalization is medically necessary and the clinically appropriate intervention at this time. We will initiate medications and make changes as indicated. Coding Level of Care Code Acute Heavy Truck Technician for [facility] Diagnoses Shingles B02.9 Herpes zoster complications: without complications Anxiety F41.9 Suicidal ideation R45.851 Atypical chest pain R07.89 PTSD (post-traumatic stress disorder) F43.10
[2021-12-10] MEDS: triamcinolone 0.1% cream 15 gm 1 APPLIC TOPICAL ×2 (13:42→17:30)
[2021-12-10 14:00] VITALS: BP 138/87; PULSE 69; RESP 18; TEMP 36.6; O2SAT 98
[2021-12-10] MEDS: acetaminophen 325 mg Tablet 650 MG PO (14:13)
[2021-12-10] MEDS: ziprasidone hcl 60 mg Capsule PO (16:09)
[2021-12-10 21:10] VITALS: PULSE 86; RESP 16; O2SAT 96
[2021-12-10] MEDS: hyDROXYzine 25 mg Capsule 50 MG PO (21:21)
[2021-12-10] MEDS: trazodone 50 mg Tablet 100 MG PO (21:22)
[2021-12-10 21:45] VITALS: BP 118/74; PULSE 71; RESP 18; TEMP 36.8; O2SAT 95
--- NOTE | 2021-12-11 01:27 | PC.NURSE ---
PRN Administration Patinet c/o anxiety, itching, pain 7/10 in left shoulder and neck, and trouble getting to sleep. Given PRN hydrocodone, hydroxyzine, and trazodone as ordered with noted effectiveness.
[2021-12-11] MEDS: diphenhydrAMINE 25 mg Capsule PO ×2 (03:43→08:22)
[2021-12-11 06:00] VITALS: BP 138/76; PULSE 74; RESP 20; TEMP 36.3; O2SAT 98
[2021-12-11] MEDS: venlafaxine ER (24HR) 150 mg Capsule 300 MG PO (08:22)
[2021-12-11] MEDS: predniSONE 20 mg Tablet 40 MG PO (08:22)
[2021-12-11] MEDS: ziprasidone hcl 20 mg Capsule PO (08:22)
[2021-12-11] MEDS: acetaminophen 325 mg Tablet 650 MG PO (08:23)
[2021-12-11] MEDS: lisinopril 20 mg Tablet PO (08:23)
[2021-12-11] MEDS: topiramate 100 mg Tablet PO (08:23)
[2021-12-11] MEDS: triamcinolone 0.1% cream 15 gm 1 APPLIC TOPICAL (08:26)
[2021-12-11 09:31] VITALS: PULSE 71; RESP 17; O2SAT 99
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
--- NOTE | 2021-12-11 10:03 | DCPLANNER ---
IMM completed with pt on 12/11/21 @ 0113. Pt was given a copy of rights and stated she understands her rights.
--- NOTE | 2021-12-11 10:04 | P.PN_ITS ---
Subjective Subjective: Interval history: Joseline reports she has better. Medications: Reviewed: Yes Vitals/I&O/Wt Last Vital Signs Temp 97.4 F L 12/11/21 06:00 Pulse 71 12/11/21 09:31 Resp 17 12/11/21 09:31 BP 138/76 12/11/21 06:00 Pulse Ox 99 12/11/21 09:31 Physical Exam Narrative: EXAM NARRATIVE: Erythema and edema has improved greatly. Wrinkles are present on her forehead. Data : 12/07/21 22:50 12/07/21 22:50 A&P Assessment and plan (1) Edema: No evidence of shingles. Most likely envenomation, allergy Improved. Benadryl and triamcinolone as needed prednisone may be discontinued Status: Acute Attestations Medical Necessity Statement*: As per primary Coding Level of Care Code Acute Home Designer for [facility] Diagnoses Edema R60.9
[2021-12-11] MEDS: nystatin powder 15 gm Btl 1 APPLIC TOPICAL (10:50)
[2021-12-11 11:20] VITALS: PULSE 71; RESP 17; O2SAT 99
== END 2021-12-11 12:01 | disposition home or self-care (01) | DRG 880 ==
LOC: ER 12-08 00:37 → NP 12-08 00:56
PROVIDERS: Nurse Practitioner Family; Admitting Provider Psychiatry & Neurology Psychiatry; Emergency Provider Emergency Medicine; Visit Provider Psychiatry & Neurology Psychiatry
DX: F41.9 Anxiety disorder, unspecified (principal); R45.851 Suicidal ideations; R07.89 Other chest pain; Z62.810 Personal history of physical and sexual abuse in childhood; F43.10 Post-traumatic stress disorder, unspecified; B02.9 Zoster without complications; F12.90 Cannabis use, unspecified, uncomplicated; R60.9 Edema, unspecified; F15.90 Other stimulant use, unspecified, uncomplicated
CPT/HCPCS: 36415; 71045; 80053; 80306; 80307; 84484; 85025; 93005; 94640; 96374; 96376; 97150; 97165; 99283; 99285; J2060; J7512; J8499